=== PATIENT | male | born 1950 | race Caucasian/White ===

== ENCOUNTER 2024-11-30 11:17 | Day surgery (SDC) | payer MEDICARE, SELFPAY ==
[2024-11-27 12:19] VITALS: BMI 33.0
--- NOTE | 2024-11-30 05:41 | EXP.HP ---
History of Present Illness *Admission Date: 11/30/24 *Reason for visit:: Positive Cologuard *History of present illness: Mr. Clayton is a 74-year-old gentleman who is here for screening colonoscopy secondary to a positive Cologuard test. The examination is deemed medically necessary for screening for colon cancer. The patient has been seen, interviewed and examined prior to the procedure by both myself and the anesthesia provider. [facility] Disclaimer: The information contained in this section may have been updated after the patient was seen, as this information can be updated by other users. Medical History (Updated 11/30/24 @ 12:09 by Kacy Gee RN) No significant past medical history Surgical History (Updated 11/30/24 @ 12:09 by Kacy Gee RN) History of finger joint replacement of left hand Hx of hernia repair Hx of vasectomy History of bilateral knee replacement Family History (Updated 11/30/24 @ 12:09 by Kacy Gee RN) Other Family history of cancer Family history of myocardial infarction Family history of rheumatoid arthritis Social History (Updated 11/30/24 @ 13:03 by David Hyde CRNA) Smoking Status: Never smoker alcohol intake: current substance use type: denies use current occupational status: retired Travel in the last 8 weeks?: None Have you lived/traveled outside [place] in past 30 days?: No Contact w/someone who lives/traveled outside [place] past 30 days?: No Exposure to someone with infectious disease in past 14 days?: No Do you have a fever (greater than 100.4 F or 38 C)?: No Have you tested positive for COVID-19?: No Exposed to someone with COVID-19 in past 14 days?: No Do you have a sore throat?: No Do you have a cough?: No Do you have any weakness?: No Are you experiencing any nausea/vomitting?: No Do you have any diarrhea?: No Are you experiencing any unusual bleeding?: No Do you have any muscle aches/pain?: No Do you have any abdominal pain?: No Are you experiencing loss of taste or smell?: No Review of Systems Review of Systems Review of systems (narrative): Negative *Cardiovascular Comments: Negative *Gastrointestinal Comments: Negative *Genitourinary Comments: Negative *Musculoskeletal Comments: Negative *Neurologic Comments: Negative Meds Home Medications and Allergies Home Medications ?Medication ?Instructions ?Recorded ?Confirmed ?Type No Known Home Medications 11/30/24 11/30/24 History New Prescriptions to Start Prescriptions: Allergies Allergy/AdvReac Type Severity Reaction Status Date / Time No Known Allergies Allergy Verified 11/30/24 12:09 Exam Data for Last 24 hours I & O for Last 24 hours: Intake & Output 11/27/24 11/28/24 11/29/24 11/30/24 23:59 23:59 23:59 23:59 Weight 250 lb *Routine HEENT Exam Head: Present normocephalic Eye: Present EOMI and PERRL ENT: Present mucous membranes moist *Routine Neck Exam Neck: Present supple *Routine Respiratory Exam Respiratory: Present CTA bilaterally *Routine Cardiovascular Exam Cardiovascular: Present RRR *Routine Abdominal Exam Abdominal: Present soft and normoactive bowel sounds; Absent tenderness *Routine Rectal Exam Rectal:: deferred *Routine Genitalia Exam Genitalia:: deferred *Routine Extremities Exam Extremities: Absent cyanosis, clubbing or edema *Routine Skin Exam Skin: Present warm; Absent rash *Routine Neurological Exam Neurological: Present alert and oriented X3 Assessment and Plan *Assessment and plan (1) Positive colorectal cancer screening using Cologuard test: Status: Acute Category: Medical Code(s): R19.5 - Other fecal abnormalities Plan A/P: 1. Positive Cologuard is the preprocedural diagnosis. The patient will be anesthetized/sedated using MAC sedation. The patient has been seen and examined. Cardiac and lung assessment prior to the examination is stable. Proceed with planned screening colonoscopy.
[2024-11-30] MEDS: LACTATED RINGERS 1000ML 1,000 ML 50 ML IV (11:59)
[2024-11-30 12:12] VITALS: BP 131/79; PULSE 57; RESP 17; TEMP 36.3; O2SAT 98
--- NOTE | 2024-11-30 13:02 | EXP.ANES.CKL ---
[facility] Disclaimer: The information contained in this section may have been updated after the patient was seen, as this information can be updated by other users. Medical History (Updated 11/30/24 @ 12:09 by Kacy Gee RN) No significant past medical history Surgical History (Updated 11/30/24 @ 12:09 by Kacy Gee RN) History of finger joint replacement of left hand Hx of hernia repair Hx of vasectomy History of bilateral knee replacement Family History (Updated 11/30/24 @ 12:09 by Kacy Gee RN) Other Family history of cancer Family history of myocardial infarction Family history of rheumatoid arthritis Social History (Updated 11/30/24 @ 12:09 by Kacy Gee RN) Smoking Status: Never smoker alcohol intake: current substance use type: denies use current occupational status: retired Travel in the last 8 weeks?: None [facility] Anesthesia Checklist Patient Identification Patient Identification: Arm Band and Verbal (Name & ) Structural Data Admitted From: Home Planned Operative Procedure/s: colonoscopy Verified Documents: Surgical Consent NPO Status Verified Time NPO: 00:00 Additional verifications Anesthesia Reactions: No Airway Assessment Mallampati Score:: Class II C-Spine Mobility Assessed: Yes TMJ Mobility Assessed: Yes Dentition: Good Dentition Neurological Assessment Level of Consciousness: Awake, Alert and Appropriate Hx Seizures: No Numbness or tingling in extremities: No Anesthesia Plan Anesthesia Risk discussed: Yes Anesthesia Plan: Verified ASA Class: II Anesthesia Type: MAC
--- NOTE | 2024-11-30 13:14 | HMH.PROCNOTE ---
[facility] Procedure Note Date: 11/30/24 Time: 13:37 Procedure Note:: Colonoscopy Procedure Report: Colonoscopy with cold snare polypectomy Endoscopist: Fernando Wick II, MD Referring physician: Josephine Berry PA-C Date of Procedure: November 30, 2024 Equipment: Olympus [id number] adult colonoscope Sedation: MAC sedation Indication: Mr. Clayton is a 74-year-old gentleman who is referred due to a positive Cologuard test. He has had 2 prior colonoscopies and he does state that his last colonoscopy 6 years ago (Curtis Willis MD at [facility]) was normal. He reports no abdominal pain, weight loss, change in his bowel habits or rectal bleeding. He reports no family history of colon cancer. Procedure: Prior to the procedure, a history and physical exam was performed, and patient's medications and allergies were reviewed. The risks, benefits and alternatives of the sedation and procedure were discussed with the patient. All questions were answered and informed consent was obtained. The patient was brought to the procedure room. Patient identification and proposed procedure were verified by the physician and the nurse. The patient was placed in a left lateral decubitus position and the scope was passed under direct vision. Throughout the procedure, the patient's blood pressure, pulse, and oxygen saturations were monitored continuously. The colonoscopy was accomplished without difficulty. The patient tolerated the procedure well. Findings: On digital rectal examination there was normal rectal tone. There were no external hemorrhoids. The prostate was 2+, smooth, soft, symmetric without nodules. The colonoscope was introduced through the anal canal to the rectum and advanced to the cecum. The ileocecal valve and appendiceal orifice were identified. The scope was advanced a short distance into the ileum which appeared grossly normal. The scope was then withdrawn into the colon. There were 15 polyps (cecum x 3 (2, 4 and 5 mm), ascending x 7 (3, 3, 3, 4, 4, 4 and 5 mm), transverse x 3 (4, 5 and 5 mm) and descending x 2 (4 and 6 mm)). These were all removed via cold snare polypectomy. The remaining cecum, ascending, transverse, descending, sigmoid and rectum were grossly normal. There were no mucosal abnormalities identified. Upon retroflexion within the rectum there were grade 1-2 internal hemorrhoids. The preparation was excellent throughout with Douglas Preparation Score of 9. The cecal time was 17 minutes. Impression: 1. Diminutive colonic polyps x 15 2. Grade 1-2 internal hemorrhoids Plan: I will follow-up the polyp histology and recommend repeat surveillance colonoscopy again in 3 years based upon the number of adenomatous colon polyps.
[2024-11-30 13:39] VITALS: BP 99/53; PULSE 51; RESP 17; TEMP 36.3; O2SAT 93
[2024-11-30 13:49] VITALS: BP 104/55; PULSE 56; RESP 17; O2SAT 92
[2024-11-30 13:59] VITALS: BP 106/59; PULSE 59; RESP 17; O2SAT 92
[2024-11-30 14:09] VITALS: BP 128/60; PULSE 61; RESP 17; TEMP 36.3; O2SAT 94
== END 2024-11-30 14:12 | disposition home or self-care (01) ==
PROVIDERS: PCP Nurse Practitioner; Visit Provider Internal Medicine Gastroenterology
PROC: 0DJD8ZZ Inspection of Lower Intestinal Tract, Via Natural or Artificial Opening Endoscopic (ICD-10-PCS; CPT 45378; principal; 2024-11-30 13:30)
DX: D12.0 Benign neoplasm of cecum (principal); D12.2 Benign neoplasm of ascending colon; D12.3 Benign neoplasm of transverse colon; D12.4 Benign neoplasm of descending colon; K64.0 First degree hemorrhoids; K64.1 Second degree hemorrhoids
CPT/HCPCS: 45385; J2003; J2704; J7120